=== PATIENT | male | born 1955 | race Two or more races ===

== ENCOUNTER 2020-03-19 17:23 | Emergency (ER) | payer SELFPAY ==
[~2020-03-19] VITALS: Ht 177.8 cm; Wt 90.0 kg
[2020-03-19 17:31] VITALS: BP 167/100
== END 2020-03-19 18:56 | disposition left against medical advice (07) ==
LOC: ER 17:23
DX: F10.129 Alcohol abuse with intoxication, unspecified (principal); Y90.9 Presence of alcohol in blood, level not specified
CPT/HCPCS: 99283

== ENCOUNTER 2020-06-02 00:05 | Inpatient (IN) | payer MEDICARE ==
[~2020-06-02] VITALS: Ht 177.8 cm; Wt 74.8 kg
[2020-06-02] MEDS ORDERED: SODIUM CHLORIDE 0.9% 1,000 ML IV ONE ×3 (00:38→07:00)
[2020-06-02] MEDS ORDERED: CHLORDIAZEPOXIDE 10MG CAPSULE PO ONE (00:45)
[2020-06-02 01:35] LABS: BASOPHILS % 0.3 % (0.0-2.0); HEMATOCRIT. 36.4 % (42.0-52.0); HEMOGLOBIN. 12.5 g/dL (14.0-18.0); LYMPHOCYTES % 10.8 % (20.0-50.0); MEAN CORPUSCULAR HEMOGLOBIN 32.2 pg (28.0-32.0); MEAN PLATELET VOLUME 8.2 fl (7.4-10.4); MONOCYTES % 6.1 % (2.0-8.0); NEUTROPHILS % 82.8 % (40.0-76.0); PLATELET 102 x1000/uL (130-400); RED BLOOD CELL COUNT 3.87 mill/uL (4.7-6.1); RED CELL DISTRIBUTION WIDTH 16.4 % (11.6-14.6)
[2020-06-02 01:38] LABS: CHLORIDE 85 mEq/L (98-107)
[2020-06-02 01:42] LABS: ETHANOL BLOOD 40 mg/dL
[2020-06-02 01:46] LABS: BETA HYDROXYBUTYRATE 0.5 mMol/L (0.0-0.3)
[2020-06-02] MEDS ORDERED: POTASSIUM CHLORIDE 20MEQ TABLET SR PO SCH ×2 (02:15→07:00)
[2020-06-02] MEDS ORDERED: ONDANSETRON HCL 4MG/2ML INJ IV ONE (02:30)
[2020-06-02] MEDS ORDERED: CLONIDINE 0.1MG TABLET PO PRN (07:00)
[2020-06-02] MEDS ORDERED: DEXTROSE 50% WATER 50ML SYRINGE IV PRN (07:00)
[2020-06-02] MEDS ORDERED: LORAZEPAM 2MG/ML CPJ IV PRN (07:00)
[2020-06-02] MEDS ORDERED: NITROGLYCERIN 0.4MG TABLET SL SL PRN (07:00)
[2020-06-02] MEDS ORDERED: MAGNESIUM/ALUMINUM HYDROXIDE/SIMETHICONE 30ML UDC PO PRN (07:00)
[2020-06-02] MEDS ORDERED: DOCUSATE SODIUM 100MG CAPSULE PO PRN (07:00)
[2020-06-02] MEDS ORDERED: MVI, ADULT NO.1 10 ML, FOLIC ACID 1 MG, THIAMINE HCL 100 MG in SODIUM CHLORIDE 0.9% 1,0... IV SCH ×4 (07:00)
[2020-06-02] MEDS ORDERED: ACETAMINOPHEN 325MG TABLET PO PRN ×2 (07:00)
[2020-06-02] MEDS ORDERED: IPRATROPIUM/ALBUTEROL 0.5-3(2.5)MG/3ML NEB NEB PRN (07:00)
[2020-06-02] MEDS ORDERED: GUAIFENESIN 200MG/10ML SUGAR FREE UDC PO PRN (07:00)
[2020-06-02 07:32] LABS: PHOSPHORUS 2.1 mg/dL (2.5-4.9)
[2020-06-02] MEDS: DILTIAZEM HCL 60MG TABLET PO SCH ×4 (07:40→22:42)
[2020-06-02] MEDS: PANTOPRAZOLE SODIUM 40 MG/VIAL IV SCH (09:00)
[2020-06-02] MEDS: SUCRALFATE 1 G/10 ML UDC PO SCH ×4 (09:00→22:42)
[2020-06-02] MEDS: ENOXAPARIN 40MG/0.4ML SYR SUBCUT SCH (09:00)
[2020-06-02] MEDS: ZINC SULFATE 220 MG ( 50 ) CAPSULE PO SCH (09:00)
[2020-06-02] MEDS: ASCORBIC ACID 500 MG TABLET PO SCH ×2 (09:00→22:43)
[2020-06-02] MEDS: BLOOD SUGAR DIAGNOSTIC STRIP TEST SCH ×4 (09:00→21:00)
[2020-06-02] MEDS: INSULIN LISPRO 100 UNITS/ML SUBCUT SCH ×4 (09:25→22:45)
[2020-06-02] MEDS: ONDANSETRON HCL 4MG/2ML INJ IV PRN (10:05)
[2020-06-02] MEDS: KETOROLAC 15MG/ML VIAL IV PRN ×2 (10:06→22:43)
[2020-06-02] MEDS: CHLORDIAZEPOXIDE 25MG CAPSULE PO SCH ×3 (13:29→22:45)
[2020-06-02] MEDS ORDERED: MAGNESIUM 4 G PREMIX 100 ML IV NR (13:30)
[2020-06-02] MEDS ORDERED: CHLORDIAZEPOXIDE 25MG CAPSULE PO SCH (14:00)
[2020-06-02] MEDS ORDERED: POTASSIUM PHOS,M-BASIC-D-BASIC 15 MMOL in DEXT 5% WATER 245 ML IV NR (14:30)
[2020-06-02 15:20] LABS: CREATINE KINASE 52 IU/L (39-308)
[2020-06-02 15:21] LABS: CREATINE KINASE MB FRACTION < 1.0 ng/mL (0.5-3.6)
[2020-06-02] MEDS ORDERED: ZOLPIDEM TARTRATE 5MG TABLET PO PRN (21:00)
[2020-06-02 22:00] VITALS: BP 101/79
[2020-06-03] VITALS: BP 104/64
[2020-06-03] MEDS ORDERED: FOLI-43 PO (02:18)
[2020-06-03] MEDS ORDERED: BUSP10TA4 PO (02:18)
[2020-06-03] MEDS ORDERED: AMLO5TAB88 PO (02:18)
[2020-06-03] MEDS ORDERED: QUET25TA PO (02:18)
[2020-06-03] MEDS ORDERED: VENL75CA56 PO (02:18)
[2020-06-03] MEDS ORDERED: METO-396 PO (02:18)
[2020-06-03] MEDS ORDERED: METF-415 PO (02:18)
[2020-06-03] MEDS ORDERED: VENL150C52 PO (02:18)
[2020-06-03] MEDS ORDERED: LISI-604 PO (02:18)
[2020-06-03] MEDS ORDERED: TRAZ-251 PO (02:18)
[2020-06-03] MEDS ORDERED: GABA-531 PO (02:18)
[2020-06-03 04:00] VITALS: BP 105/52
[2020-06-03] MEDS: DILTIAZEM HCL 60MG TABLET PO SCH (06:00)
[2020-06-03 06:21] LABS: CHLORIDE 94 mEq/L (98-107)
[2020-06-03] MEDS: CHLORDIAZEPOXIDE 25MG CAPSULE PO SCH ×3 (06:42→21:01)
[2020-06-03] MEDS: BLOOD SUGAR DIAGNOSTIC STRIP TEST SCH ×4 (06:43→20:41)
[2020-06-03] MEDS: SUCRALFATE 1 G/10 ML UDC PO SCH ×4 (06:43→20:55)
[2020-06-03 06:45] LABS: PHOSPHORUS 2.7 mg/dL (2.5-4.9)
[2020-06-03 06:47] LABS: CREATINE KINASE 34 IU/L (39-308)
[2020-06-03 06:51] LABS: BASOPHILS % 0.3 % (0.0-2.0); CREATINE KINASE MB FRACTION < 1.0 ng/mL (0.5-3.6); EOSINOPHILS % 0.2 % (0.0-5.0); HEMOGLOBIN. 12.5 g/dL (14.0-18.0); MEAN CORPUSCULAR HEMOGLOBIN 32.1 pg (28.0-32.0); MEAN CORPUSCULAR VOLUME 95.5 fL (80.0-94.0); MEAN PLATELET VOLUME 8.5 fl (7.4-10.4); MONOCYTES % 5.8 % (2.0-8.0); NEUTROPHILS % 70.7 % (40.0-76.0); RED BLOOD CELL COUNT 3.88 mill/uL (4.7-6.1); RED CELL DISTRIBUTION WIDTH 16.6 % (11.6-14.6)
[2020-06-03 08:00] VITALS: BP 106/30
[2020-06-03] MEDS: ASCORBIC ACID 500 MG TABLET PO SCH ×2 (08:13→20:55)
[2020-06-03] MEDS: PANTOPRAZOLE SODIUM 40 MG/VIAL IV SCH (08:13)
[2020-06-03] MEDS: ENOXAPARIN 40MG/0.4ML SYR SUBCUT SCH ×2 (08:14→08:26)
[2020-06-03] MEDS: ZINC SULFATE 220 MG ( 50 ) CAPSULE PO SCH (08:14)
[2020-06-03] MEDS: INSULIN LISPRO 100 UNITS/ML SUBCUT SCH ×4 (08:16→20:54)
[2020-06-03] MEDS ORDERED: POTASSIUM CHLORIDE 20MEQ/PACKET PO SCH (08:45)
[2020-06-03] MEDS ORDERED: DILTIAZEM HCL 60MG TABLET PO SCH (08:45)
[2020-06-03] MEDS ORDERED: SODIUM CHLORIDE 0.9% 500 ML IV ONE (08:50)
[2020-06-03] MEDS: SODIUM CHLORIDE 0.9% 1,000 ML IV SCH ×2 (08:53→17:42)
[2020-06-03] MEDS ORDERED: KCL 20MEQ/100ML PREMIX 100 ML IV SCH (10:00)
[2020-06-03 10:15] LABS: PLATELET 34 x1000/uL (130-400)
[2020-06-03] MEDS ORDERED: AMIODARONE HCL 50MG/ML 3ML VIAL IV ONE (11:30)
[2020-06-03 12:00] VITALS: BP 110/69
[2020-06-03] MEDS ORDERED: AMIODARONE HCL 150 MG in DEXT 5% WATER 100 ML IV ONE (12:00)
[2020-06-03] MEDS: METOPROLOL TARTRATE 25MG TABLET PO SCH ×2 (13:11→20:58)
[2020-06-03 16:00] VITALS: BP 102/46
[2020-06-03] MEDS: ONDANSETRON HCL 4MG/2ML INJ IV PRN (16:40)
[2020-06-03 20:00] VITALS: BP 99/65
[2020-06-04] VITALS: BP 89/64
[2020-06-04] MEDS: SODIUM CHLORIDE 0.9% 1,000 ML IV SCH (01:40)
[2020-06-04 04:00] VITALS: BP 103/72
[2020-06-04] MEDS: CHLORDIAZEPOXIDE 25MG CAPSULE PO SCH ×3 (06:06→21:58)
[2020-06-04] MEDS: SUCRALFATE 1 G/10 ML UDC PO SCH ×4 (06:20→21:49)
[2020-06-04] MEDS: BLOOD SUGAR DIAGNOSTIC STRIP TEST SCH ×4 (06:21→21:24)
[2020-06-04 06:25] LABS: BASOPHILS % 0.3 % (0.0-2.0); EOSINOPHILS % 0.4 % (0.0-5.0); HEMATOCRIT. 33.9 % (42.0-52.0); HEMOGLOBIN. 11.3 g/dL (14.0-18.0); MEAN CORPUSCULAR HEMOGLOBIN 32.1 pg (28.0-32.0); MEAN PLATELET VOLUME 10.2 fl (7.4-10.4); MONOCYTES % 7.3 % (2.0-8.0); PLATELET 56 x1000/uL (130-400); RED BLOOD CELL COUNT 3.53 mill/uL (4.7-6.1); RED CELL DISTRIBUTION WIDTH 16.5 % (11.6-14.6)
[2020-06-04 06:36] LABS: CHLORIDE 100 mEq/L (98-107)
[2020-06-04 07:15] LABS: PHOSPHORUS 1.9 mg/dL (2.5-4.9)
[2020-06-04] MEDS: INSULIN LISPRO 100 UNITS/ML SUBCUT SCH ×4 (07:18→21:48)
[2020-06-04 08:00] VITALS: BP 110/74
[2020-06-04] MEDS: ZINC SULFATE 220 MG ( 50 ) CAPSULE PO SCH (08:19)
[2020-06-04] MEDS: PANTOPRAZOLE 40MG DR TABLET PO SCH (08:19)
[2020-06-04] MEDS: METOPROLOL TARTRATE 25MG TABLET PO SCH ×2 (08:19→21:49)
[2020-06-04] MEDS: ASCORBIC ACID 500 MG TABLET PO SCH ×2 (08:19→21:49)
[2020-06-04] MEDS ORDERED: POTASSIUM PHOS,M-BASIC-D-BASIC 20 MMOL in DEXT 5% WATER 243.3333 ML IV SCH (10:00)
[2020-06-04 12:00] VITALS: BP 98/60
[2020-06-04] MEDS ORDERED: KCL 20MEQ/100ML PREMIX 100 ML IV SCH (12:00)
[2020-06-04 16:00] VITALS: BP_SYST 141; BP_SYST 147; BP_DIAS 85
[2020-06-04 20:00] VITALS: BP 102/72
[2020-06-05] VITALS: BP 100/69
[2020-06-05 04:00] VITALS: BP 104/70
[2020-06-05] MEDS: CHLORDIAZEPOXIDE 25MG CAPSULE PO SCH (06:18)
[2020-06-05] MEDS: SUCRALFATE 1 G/10 ML UDC PO SCH ×4 (06:20→21:15)
[2020-06-05] MEDS: BLOOD SUGAR DIAGNOSTIC STRIP TEST SCH ×4 (06:21→21:05)
[2020-06-05] MEDS: INSULIN LISPRO 100 UNITS/ML SUBCUT SCH ×4 (07:30→21:13)
[2020-06-05 07:56] LABS: BASOPHILS % 0.6 % (0.0-2.0); EOSINOPHILS % 0.4 % (0.0-5.0); HEMATOCRIT. 36.1 % (42.0-52.0); HEMOGLOBIN. 12.1 g/dL (14.0-18.0); LYMPHOCYTES % 18.3 % (20.0-50.0); MEAN CORPUSCULAR HEMOGLOBIN 32.3 pg (28.0-32.0); MEAN CORPUSCULAR VOLUME 96.7 fL (80.0-94.0); MEAN PLATELET VOLUME 9.3 fl (7.4-10.4); MONOCYTES % 8.6 % (2.0-8.0); NEUTROPHILS % 72.1 % (40.0-76.0); PLATELET 69 x1000/uL (130-400); RED BLOOD CELL COUNT 3.73 mill/uL (4.7-6.1); RED CELL DISTRIBUTION WIDTH 17.2 % (11.6-14.6)
[2020-06-05 07:59] LABS: CHLORIDE 101 mEq/L (98-107)
[2020-06-05 08:00] VITALS: BP 92/65
[2020-06-05 08:09] LABS: PHOSPHORUS 2.6 mg/dL (2.5-4.9)
[2020-06-05] MEDS: ZINC SULFATE 220 MG ( 50 ) CAPSULE PO SCH (08:50)
[2020-06-05] MEDS: ASCORBIC ACID 500 MG TABLET PO SCH ×2 (08:50→21:15)
[2020-06-05] MEDS: PANTOPRAZOLE 40MG DR TABLET PO SCH (08:50)
[2020-06-05] MEDS: METOPROLOL TARTRATE 25MG TABLET PO SCH ×2 (08:51→21:14)
[2020-06-05] MEDS ORDERED: MAGNESIUM 1 G PREMIX 100 ML IV SCH (10:00)
[2020-06-05] MEDS ORDERED: CHLORDIAZEPOXIDE 25MG CAPSULE PO SCH (14:00)
[2020-06-05 20:00] VITALS: BP 112/77
[2020-06-05] MEDS: CHLORDIAZEPOXIDE 10MG CAPSULE PO SCH (21:15)
[2020-06-06] VITALS: BP 109/76
[2020-06-06] MEDS: CHLORDIAZEPOXIDE 10MG CAPSULE PO SCH ×3 (06:19→21:36)
[2020-06-06] MEDS: SUCRALFATE 1 G/10 ML UDC PO SCH ×4 (06:35→20:56)
[2020-06-06] MEDS: BLOOD SUGAR DIAGNOSTIC STRIP TEST SCH ×4 (06:48→21:06)
[2020-06-06] MEDS: INSULIN LISPRO 100 UNITS/ML SUBCUT SCH ×4 (07:45→21:43)
[2020-06-06 08:00] VITALS: BP 116/61
[2020-06-06] MEDS: ZINC SULFATE 220 MG ( 50 ) CAPSULE PO SCH (09:14)
[2020-06-06] MEDS: ASCORBIC ACID 500 MG TABLET PO SCH ×2 (09:14→20:56)
[2020-06-06] MEDS: PANTOPRAZOLE 40MG DR TABLET PO SCH (09:14)
[2020-06-06] MEDS: METOPROLOL TARTRATE 25MG TABLET PO SCH ×2 (09:15→20:35)
[2020-06-06 12:00] VITALS: BP 95/62
[2020-06-06 20:00] VITALS: BP 91/66
[2020-06-07 04:00] VITALS: BP 107/76
[2020-06-07] MEDS: CHLORDIAZEPOXIDE 10MG CAPSULE PO SCH (05:48)
[2020-06-07] MEDS: SUCRALFATE 1 G/10 ML UDC PO SCH ×4 (05:48→21:03)
[2020-06-07] MEDS: INSULIN LISPRO 100 UNITS/ML SUBCUT SCH ×4 (07:50→21:00)
[2020-06-07] MEDS: BLOOD SUGAR DIAGNOSTIC STRIP TEST SCH ×4 (07:56→21:02)
[2020-06-07 08:00] VITALS: BP 98/78
[2020-06-07] MEDS: METOPROLOL TARTRATE 25MG TABLET PO SCH ×2 (09:00→21:00)
[2020-06-07] MEDS: PANTOPRAZOLE 40MG DR TABLET PO SCH (09:40)
[2020-06-07] MEDS: ASCORBIC ACID 500 MG TABLET PO SCH ×2 (09:40→21:04)
[2020-06-07] MEDS: ZINC SULFATE 220 MG ( 50 ) CAPSULE PO SCH (09:40)
[2020-06-07 11:32] VITALS: BP 95/69
[2020-06-07] MEDS: CHLORDIAZEPOXIDE 5 MG CAPSULE PO SCH ×2 (13:39→21:04)
[2020-06-07 15:50] VITALS: BP 107/58
[2020-06-07 20:38] VITALS: BP 98/68
[2020-06-08 00:21] VITALS: BP 103/71
[2020-06-08 04:00] VITALS: BP 100/76
[2020-06-08] MEDS: CHLORDIAZEPOXIDE 5 MG CAPSULE PO SCH (05:56)
[2020-06-08] MEDS: BLOOD SUGAR DIAGNOSTIC STRIP TEST SCH ×2 (06:40→12:23)
[2020-06-08] MEDS: SUCRALFATE 1 G/10 ML UDC PO SCH ×2 (06:40→12:23)
[2020-06-08 08:00] VITALS: BP 107/76
[2020-06-08] MEDS: ZINC SULFATE 220 MG ( 50 ) CAPSULE PO SCH (08:47)
[2020-06-08] MEDS: ASCORBIC ACID 500 MG TABLET PO SCH (08:47)
[2020-06-08] MEDS: PANTOPRAZOLE 40MG DR TABLET PO SCH (08:47)
[2020-06-08] MEDS: METOPROLOL TARTRATE 25MG TABLET PO SCH (08:51)
[2020-06-08] MEDS: INSULIN LISPRO 100 UNITS/ML SUBCUT SCH ×2 (08:53→12:22)
[2020-06-08 09:47] VITALS: BP 149/46
[2020-06-08 11:44] VITALS: BP 107/76
[2020-06-08 12:00] VITALS: BP 113/69
== END 2020-06-08 14:54 | DRG 896 ==
LOC: ER 00:05 → 6WST 03:32 → SUPCPDRO 06:54 → CANRESERV 10:38 → ENRESERV 10:38
PROVIDERS: ADMIT Internal Medicine; ATTEND Internal Medicine
DX: F10.239 Alcohol dependence with withdrawal, unspecified (principal); E43 Unspecified severe protein-calorie malnutrition; I48.20 Chronic atrial fibrillation, unspecified; E87.1 Hypo-osmolality and hyponatremia; R17 Unspecified jaundice; I47.1 Supraventricular tachycardia; D64.9 Anemia, unspecified; D69.59 Other secondary thrombocytopenia; E83.39 Other disorders of phosphorus metabolism; E83.42 Hypomagnesemia; Y90.9 Presence of alcohol in blood, level not specified; E83.51 Hypocalcemia; E87.6 Hypokalemia; R74.0 Nonspecific elevation of levels of transaminase and lactic acid dehydrogenase [LDH]; Z20.828 Contact with and (suspected) exposure to other viral communicable diseases; D69.6 Thrombocytopenia, unspecified; Z68.23 Body mass index [BMI] 23.0-23.9, adult; Z91.14 Patient's other noncompliance with medication regimen; Z79.4 Long term (current) use of insulin; E11.65 Type 2 diabetes mellitus with hyperglycemia
CPT/HCPCS: 36415; 71045; 80053; 80061; 80320; 82010; 82550; 82553; 82962; 83036; 83735; 84100; 84484; 85025; 87635; 93005; 93306; 93970; 96374; 97116; 97162; 97166; 97530; 99285; C9113; J0282; J1650; J1815; J1885; J2060; J2405; J3411; J3475; J3480; J3490; J7030; J7060; G0480